=== PATIENT | female | born 1940 | race Caucasian/White ===

== ENCOUNTER → 2016-07-26 | Outpatient (CLI) | payer MEDICARE ==
[~2016-07-26] MED LIST: ACCUPRIL PO; ACCUPRIL40 MG PO; CARDIZEM CD240 M1 PO; CRESTOR PO; CRESTOR10 MG PO; KEFLEX PO; LORCET 10/650 T1 TAB PO; PERCOCET5/325 PO; PHENERGAN PR; PREMARIN PO; PRILOSEC PO; PRILOSEC20 MG PO; ZOLOFT PO; ZOLOFT100 MG PO; [UNRECOGNIZED DRUG - OTHER] PO
--- NOTE | ~2016-07-26 | CR63 ---
[facility] A Service of [facility] & [facility] / [facility] RADIOLOGY TEXT RESULTS PATIENT: ЮЛИЯ ERNST LOCATION: [facility] : 36 UNIT #: [id number] AGE: [address]: Charleen Lutz MD SEX: F ORDER DR: [id number] [facility] [address] [place], [place] [address] [id number] O MR#: [id number] Acc #: [id number] NAME: ЮЛИЯ ERNST. : 1940 SEX: F STUDY DATE/TIME: 07/26/2016 16:11 UNIT: [facility] ROOM: STUDY DESCRIPTION: CR Chest 2 View Attending Physician: Charleen Lutz M.D. Referring Physician: Charleen Lutz M.D. Ordering Physician: Charleen Lutz M.D. Primary Care Physician: Charleen Lutz M.D. MEDICAL IMAGING REPORT This report is preliminary unless electronic signature is present EXAM PA and lateral chest dated 07/26 COMPARISON 03/28/2015 HISTORY Shortness of breath, cough, back pain, bronchitis for 1 week FINDINGS PA and lateral views are obtained. The heart size appears normal the lungs are clear. CONCLUSION No active disease Dictated by... Deo Webb M.D. THIS IS AN ELECTRONICALLY VERIFIED REPORT Deo Webb M.D. at 07/27/2016 12:00 PM JUDITH/cabrera TD: 07/26/2016 20:19 JOB #: [id number] MEDICAL IMAGING REPORT Page 1 of 1 COPY
== END | disposition home or self-care (01) ==
LOC: CRAD 16:02
DX: J20.9 Acute bronchitis, unspecified (principal)
CPT/HCPCS: 71020